=== PATIENT | female | born 1960 | race Caucasian/White ===

== ENCOUNTER 2018-05-01 19:11 | Emergency (ER) | payer BC, SELFPAY ==
[2018-05-01 19:12] VITALS: BP 171/82; PULSE 89; RESP 15; TEMP 36.7; O2SAT 97; BMI 24.7
[2018-05-01 19:31] VITALS: BP 160/68; PULSE 64
--- NOTE | 2018-05-01 19:45 | EKG12_ITS ---
Test Reason : HTN Blood Pressure : / mmHG Vent. Rate : 064 BPM Atrial Rate : 064 BPM P-R Int : 156 ms QRS Dur : 094 ms QT Int : 414 ms P-R-T Axes : 057 045 042 degrees QTc Int : 427 ms Sinus rhythm with Premature atrial complexes Otherwise normal ECG Confirmed by HANANE STEARNS, LUCIEN ([id number]), fan mail editor RICARDO HURTADO ([id number]) on 05/06/2018 10:11:52 AM Referred By: ОЛЬГА Confirmed By:LUCIEN KOO MD
[2018-05-01 20:03] LABS: Bacteria 0 SEEN /hpf (None Seen); Mucous, Urine 0 SEEN /hpf (<or=2+); White Blood Cells 0 SEEN /hpf (0-5)
[2018-05-01 20:05] LABS: Absolute Lymphocyte Count 1.79 X10^3/ul (0.83-4.51); Absolute Neutrophil Count 3.1 X10^3/uL (2.0-7.7); Basophil# 0.03 X10^3/uL; Basophil% 0.5 % (0-1); Eosinophil# 0.17 X10^3/uL; Eosinophils% 3.1 % (0-5); Hematocrit 40.9 % (37-47); Hemoglobin 13.5 g/dl (12.0-15.0); Lymphocyte # 1.79 X10^3/ul (4.0); Lymphocyte % 32.5 % (19-41); Mean Corpuscular Volume 93.8 fL (81-99); Mean Platelet Vol. 10.9 fl (6.2-12.0); Monocyte# 0.42 X10^3/uL; Monocyte% 7.6 % (0-10); Neutrophil # 3.08 X10^3/uL (2.7-7.7); Neutrophil % 56.1 % (47-70); Platelet Count 226 K/mm3 (150-450); RBC Distribution Width SD 44.3 fl (35.1-43.9); Red Blood Count 4.36 M/mm3 (4.2-5.4); White Blood Count 5.5 K/mm3 (4.4-11.0)
[2018-05-01 20:05] LABS: Color, Urine Yellow (Yellow); Glucose, Dipstick Normal (Normal); Ketone-Dipstick 5 mg/dl (Negative); Leukocyte Esterase-Dipstick Negative /ul (Negative); Nitrite-Dipstick Negative (Negative); Occult Blood-Urine 25 /ul (Negative); Protein-Dipstick Negative (Negative); Urine Bilirubin Dipstick Negative (Negative); Urine Clarity Clear (Clear); Urine Urobilinogen Normal (Normal)
[2018-05-01 20:07] LABS: POSITIVE COUNT NO; POSITIVE DIFFERENTIAL NO; POSITIVE MORPHOLOGY NO
[2018-05-01 20:08] VITALS: BP 164/80
[2018-05-01 20:11] LABS: Red Blood Cells-Urine 0-5 SEEN /hpf (0-5); Squamous Epithelial Cells - UA 0-5 SEEN /hpf (5-10)
[2018-05-01 20:18] LABS: Anion Gap 7 (5-15); BUN 12 mg/dL (7-18); BUN/Creat Ratio 14.9 RATIO (10-20); Calcium,Total 8.8 mg/dL (8.5-10.1); Chloride 104 mmol/L (98-107); EST Glomerular Filtration Rate 78 mL/min (>60); Est Glom Filt Rate - Afr Amer 94 mL/min (>60); Estimated Creatinine Clearance 72.63 ml/min; Glucose 87 mg/dL (74-106); Potassium 3.6 mmol/L (3.5-5.1); Sodium Level 139 mmol/L (136-145)
--- NOTE | 2018-05-01 20:25 | ED.DCSUM_ITS ---
- ER Visit Summary Date of Service: 05/01/18 Chief Complaint: Hypertension History of Present Illness: The patient is a 57 F who states that she went to the urgent care today because while she was at work today her blood pressure readings were around 180/100. She states that her blood pressure at urgent care was 200/120 and she was sent to the emergency room. He notes some chest tightness but no headache or neurologic symptoms. No visual changes. No history of renal disorders. She currently takes Bystolic 10 mg once a day. She states that on a very normal day her blood pressure is normal. But she states that on stressful days it is been running this high. She states that she has more stressful days than not. She is currently in the area having moved here for a new job. She states she did not feel comfortable being at home alone with that pressure. She takes trazodone as needed for sleep issues. Physical Examination: Afebrile 164/80 Gen: Well-nourished well-developed Head: Normocephalic atraumatic Eyes: Perrl EOMI ENT: TMs clear no rhinorrhea moist mucous membranes Neck: Supple no lymphadenopathy no JVD nontender CVS: Regular rate rhythm no murmurs normal S1-S2 Respiratory: No distress clear to auscultation bilaterally chest nontender Abdomen: Soft nontender nondistended normal bowel sounds no masses Back: Nontender Extremity: Nontender no edema Skin: Normal color no rash Neuro: alert orientated ?3 CN II-XII intact normal strength sensation reflexes gait cerebellar Psych: Normal affect normal mood Test Results: CBC and BMP were normal. EKG shows a sinus rhythm rate of 64 with a PAC. Emergency Department Course and Treatment: The patient notes elevated blood pressure for multiple weeks. As such and with a normal creatinine will start her on lisinopril 20 mg. I encouraged her to follow-up with primary care and a provider at name for somebody to see. He may also choose a provider of her choice. Impression: 1. Hypertension-out of control This note was generated with [employer] dictation software. It may contain incorrect words, spelling, and punctuation that were not noted in review of the chart prior to signing ED Disposition - Plan for ED Patient: Disposition: Home or Assisted Living Instructions: ED Hypertension Conf Out Of Control Prescriptions: Lisinopril 20 mg PO DAILY #30 tab Referrals: Derrick Lebron MD [STAFF PHYSICIAN] - (call to arrange follow up or you may see the PCP of your choosing)
[2018-05-01 20:48] VITALS: BP 143/71
== END 2018-05-01 20:49 | disposition home or self-care (01) ==
PROVIDERS: Emergency Provider Emergency Medicine
DX: I10 Essential (primary) hypertension (principal); Z79.899 Other long term (current) drug therapy
CPT/HCPCS: 80048; 81001; 85025; 93005; 99284; A4216

== ENCOUNTER 2019-04-05 15:43 | Emergency (ER) | payer BC, SELFPAY ==
[2019-04-05 15:44] VITALS: BP 174/102; PULSE 64; RESP 15; TEMP 37; O2SAT 97; BMI 26.0
[2019-04-05 15:55] VITALS: PULSE 80; RESP 22; O2SAT 98
--- NOTE | 2019-04-05 15:59 | EKG12_ITS ---
Test Reason : SOB Blood Pressure : / mmHG Vent. Rate : 057 BPM Atrial Rate : 057 BPM P-R Int : 144 ms QRS Dur : 092 ms QT Int : 422 ms P-R-T Axes : 031 029 025 degrees QTc Int : 410 ms Sinus bradycardia Otherwise normal ECG Confirmed by SANTOSH STEARNS, LOGAN ([id number]), fashion editor JUNIE ZARATE ([id number]) on 04/07/2019 10:04:49 AM Referred By: ОЛЬГА Confirmed By:LOGAN FROST MD
--- NOTE | 2019-04-05 16:00 | ED.DCSUM_ITS ---
History of Present Illness Chief Complaint: Shortness of Breath Informant: Patient Onset: Today Narrative: Patient presents emergency department with a right mid axillary chest pain. It is worse with touch, movement, cough, and deep breaths. She was recently in [place] and flew home. She has had a cough for the past 3-1/2 weeks that is slightly productive. Low-grade temperature the beginning of the week and she saw a doctor in [place] put her on prednisone which did help. She went to urgent care and was referred here out of concern for possible pulmonary embolism. She denies any leg swelling. No history of PE DVT. Past Medical History - Allergies and Home Meds Allergies/Adverse Reactions: Allergies Penicillins [PCN] Allergy (Verified 04/05/19 15:48) Brigida Primary Care Physician: [facility] Doctor,Out of [NON-STAFF] - Smoking Status: Never smoker Review of Systems General: Denies: Chills, Fever, Sweats Eyes: Denies: Visual changes - bilaterally, Diplopia ENT: Denies: Rhinorrhea, Sore throat Cardiovascular: Reports: Chest pain. Denies: Palpitations Respiratory: Reports: Cough. Denies: Dyspnea, Dyspnea on exertion Gastrointestinal: Denies: Abdominal pain, Nausea, Vomiting, Diarrhea, Melena, Hematochezia Genitourinary: Denies: Dysuria, Hematuria, Frequency Musculoskeletal: Denies: Back pain, Extremity Pain Skin: Denies: Rash, Wounds Neurological: Denies: Headache, Weakness, Numbness Physical Exam Vital Signs/Narrative: Vital Signs Temp Pulse Resp BP Pulse Ox 04/05/19 15:55 80 22 H 98 04/05/19 15:44 98.6 F 64 15 174/102 H 97 Inital Vital Signs reviewed: Yes General: Well nourished, Well developed, No Acute Distress Head: Normocephalic, Atraumatic Eyes: Perrl, EOMI ENT: Moist mucous membranes, No rhinorrhea Neck: Supple, Nontender Cardiovascular: Regular rate, Regular rhythm, No murmurs Respiratory: No distress, CTA bilaterally, Chest nontender, Chest tenderness - Right midaxillary mid rib tenderness to palpation that reproduces her pain Abdomen: Soft, Nontender, Nondistended, Normal bowel sounds Back: Nontender, Normal Inspection Extremities: Nontender, No edema Skin: Normal color, No rash Neurological: Alert, Oriented x3, Cranial nerves II-XII grossly intact, Normal Strength, Normal Sensation Psychological: Normal affect, Normal Mood Diagnostic/Tx/Re-eval - Rhythm Strip Rhythm Strip: Sinus Rhythm Rate: 57 - Medical Decision Making Basic labs were negative. EKG is a sinus bradycardia rate of 57. Because the patient is not PERC negative and with her recent travel and pleuritic pain a CT was ordered and was negative for pulmonary embolism. Patient most likely has a viral bronchitis and musculoskeletal somatic rib pain. Read recommend anti- inflammatories and supportive care. ED Disposition - Plan for ED Patient: Disposition: Home or Assisted Living Diagnosis: Bronchitis, Chest wall pain Instructions: BRONCHITIS, No Antibiotic (Adult), Chest Wall Strain Referrals: [facility] Doctor,Out of [NON-STAFF] - Additional Instructions: Follow-up with your doctor if not improving or return if worsening
[2019-04-05 16:13] LABS: Absolute Lymphocyte Count 2.02 X10^3/uL (0.83-4.51); Absolute Neutrophil Count 4.5 X10^3/uL (2.0-7.7); Basophil# 0.03 X10^3/uL; Basophil% 0.4 % (0-1); Eosinophil# 0.09 X10^3/uL; Eosinophils% 1.2 % (0-5); Hematocrit 42.9 % (37-47); Hemoglobin 14.1 g/dL (12.0-15.0); Lymphocyte # 2.02 X10^3/ul (4.0); Lymphocyte % 27.7 % (19-41); Mean Corp Hgb Conc 32.9 g/dL (32-36); Mean Corpuscular Hgb 31.5 pg (27.0-32.0); Mean Platelet Vol. 10.2 fl (6.2-12.0); Monocyte# 0.64 X10^3/uL; Monocyte% 8.8 % (0-10); NRBC Flagged by Analyzer 0 % (0-5); Neutrophil # 4.48 X10^3/uL (2.7-7.7); Neutrophil % 61.5 % (47-70); Platelet Count 293 K/mm3 (150-450); RBC Distribution Width CV 12.6 % (11.6-14.6); RBC Distribution Width SD 44.7 fl (35.1-43.9); Red Blood Count 4.47 M/mm3 (4.2-5.4); White Blood Count 7.3 K/mm3 (4.4-11.0)
[2019-04-05 16:32] LABS: ALB/GLOB Ratio 1.4 RATIO (0.9-2.4); AST(SGOT) 24 U/L (15-37); Alanine Aminotransfer ALT/SGPT 43 U/L (13-56); Albumin, Serum 4.2 g/dL (3.2-5.0); Alkaline Phosphatase 81 U/L (45-117); Anion Gap 6 (5-15); BUN 12 mg/dL (7-18); BUN/Creat Ratio 13.9 RATIO (10-20); Calcium,Total 9.2 mg/dL (8.5-10.1); Chloride 103 mmol/L (98-107); Creatinine, Serum 0.86 mg/dL (0.55-1.02); EST Glomerular Filtration Rate 72 mL/min (>60); Est Glom Filt Rate - Afr Amer 87 mL/min (>60); Estimated Creatinine Clearance 66.75 ml/min; Globulin 3.1 g/dL (2.2-4.2); Glucose 97 mg/dL (74-106); Potassium 4.4 mmol/L (3.5-5.1); Protein, Total 7.3 g/dL (6.4-8.2); Sodium Level 140 mmol/L (136-145)
--- NOTE | 2019-04-05 16:41 | CT_ITS ---
STUDY: CTA CHEST REASON FOR EXAM: Female, 58 years old. CHEST PAIN, IHSH RISH FOR PE, RECENT TRAVEL RADIATION DOSAGE (If Supplied By Facility): CTDIvol = ( 8.54 ) mGy, DLP = ( 284.57 ) mGycm TECHNIQUE: The examination was performed with the intravenous administration of IV 100mL Isovue-370. Post-processing of the angiographic images was performed, with multiplanar reformation and 3D reconstruction. Individualized dose optimization techniques were used for this CT. COMPARISON: None. FINDINGS: Normal enhancement of the main pulmonary artery and right and left pulmonary arteries. Normal enhancement of the bilateral peripheral pulmonary arteries. There is no demonstrated pulmonary embolism. Normal thoracic aorta and visualized great vessels. There is no demonstrated aortic dissection. Normal heart and pericardium. Normal mediastinum. Normal hilar regions. There is peribronchial thickening. The lungs are well expanded. Normal pulmonary parenchyma. Normal pleura. Bilateral breast implants are intact and free of complication Normal osseous structures. Normal visualized upper abdomen. CT/CTA Chest W/WO Contrast IMPRESSION: No demonstrated PE, or thoracic aortic aneurysm or dissection. No acute pulmonary process, evidence of chronic bronchitis No suspicious adenopathy Bilateral breast implants free of complication Electronically Signed: Jeancarlos Adams MD at 17:46 EST , Service support ,
[2019-04-05 18:25] VITALS: BP 140/87; PULSE 57; RESP 12; O2SAT 96
== END 2019-04-05 18:25 | disposition home or self-care (01) ==
PROVIDERS: Emergency Provider Emergency Medicine
DX: J40 Bronchitis, not specified as acute or chronic (principal); R07.89 Other chest pain
CPT/HCPCS: 71275; 80053; 84484; 85025; 93005; 99284; Q9967; A4216